=== PATIENT | female | born 1990 | race Caucasian/White ===

== ENCOUNTER 2024-07-22 19:48 | Emergency (ER) | payer OTHER, MEDICAID, SELFPAY ==
[2024-07-22 19:57] VITALS: BP 135/85; PULSE 85; RESP 18; TEMP 36.9; O2SAT 99; BMI 41.1
--- NOTE | 2024-07-22 22:09 | ED.GENADULT ---
HPI - General Adult General Date Seen: 07/22/24 Chief complaint: Extremity Pain/Injury, Lower Stated complaint: Left leg injury, little ability to move leg Time Seen by Provider: 07/22/24 21:44 History of Present Illness HPI narrative: 34-year-old female presenting to the ER today with right knee pain. She slipped and fell this morning on ice. She was seen in the ER in [place], [place] and had a knee x-ray that she reports was negative. She says she slipped and fell on the ice at about 4:00 a.m. this morning when she was at work. She describes an awkward fall where her left leg flu out sideways and she fell forward with all of her weight directly on to her right knee. She had knee pain after that. She was seen in a different ER (the ER in [place]) and reports that she had negative knee x-rays. She was told that she has a knee sprain and was discharged home. She has had ongoing pain in her legs since then and now has pain all the way from her femur, through the knee, into the back of her knee and all the way down to her ankle. She has is that hurts try to bear weight on her knee. She came here to the ER in [place], seeking a 2nd opinion. She has not re-injured her knee. She does not really recall a twisting mechanism. She does have a history of a previous injury to her left (contralateral) knee that apparently his lead to some chronic ?soft tissue? damage. Related Data Home Medications ?Medication ?Instructions ?Recorded ?Confirmed No Known Home Medications 07/22/24 07/22/24 Allergies Allergy/AdvReac Type Severity Reaction Status Date / Time aspirin Allergy Severe Anaphylaxis Verified 07/22/24 20:02 [facility] Medical History (Updated 07/22/24 @ 23:42 by Leonardo Villalobos MD) No significant past medical history Surgical History (Updated 07/22/24 @ 23:11 by Blayne Bardales RN) No significant past surgical history Social History Smoking Status: Never smoker Do you use any of these nicotine containing products: Vaping Products Second hand tobacco smoke exposure: No How often do you have a drink containing alcohol: never AUDIT-C Alcohol total score: 0 Non-prescribed substance use: denies use Exam Narrative: Exam Narrative: Constitutional: Appears well-developed and well-nourished. Active. Endorses pain in her right leg and says she cannot move it because of severe right knee and leg pain HENT: Head: Atraumatic. No signs of injury. Nose: No nasal discharge. Mouth/Throat: Mucous membranes are moist. Pharynx is normal. Tonsils symmetric. Uvula midline. Airway patent. Eyes: Conjunctivae normal and EOM are normal. Pupils are equal, round, and reactive to light. Right eye exhibits no discharge. Left eye exhibits no discharge. No icterus. Neck: Normal range of motion. Neck supple. No adenopathy. No stridor. Cardiovascular: Normal rate and regular rhythm. No murmur heard. No murmurs, rubs, or gallops. Brisk capillary refill Pulmonary/Chest: Effort normal. No stridor. No respiratory distress. No wheezes.No rhonchi. No rales. No retractions. Musculoskeletal: No injury except for her right leg. Inspection of the right leg is normal. There is no bruising. No abrasion. No no redness. Because of elevated BMI difficult to assess for swelling in the knee but there is no obvious knee joint effusion. She is holding her knee flexed about 10? and says it hurts to fully extend and hurts to flex it beyond 10?. I am not able to examine her knee for ligamentous injury due to pain and muscular guarding. She also endorses pain radiating up into her femur and thigh from the knee and down into her lower leg all the way to the ankle from her knee. She has no bony tenderness over the hip. No definite bony deformity of the femoral shaft. She does have tenderness over the distal thigh without any bruising or swelling. She also has tenderness over the tibial spine anteriorly and the medial and lateral malleoli of her ankle. No tenderness over the gastrocnemius or calf. She does have intact ankle plantar flexion and dorsiflexion. Intact toe wiggling. Normal sensory function on the sole of the foot, dorsal 1st web space, medial and lateral foot. Normal DP pulse. Normal brisk distal cap refill.. Neurological: Alert. Normal strength. No cranial nerve deficit or sensory deficit. Coordination normal. GCS eye subscore is 4. GCS verbal subscore is 5. GCS motor subscore is 6. Skin: Skin is warm. No rash noted. Const: Vital Signs, click to edit/add: Vital Signs - 24 hr 07/22/24 19:57 07/22/24 22:26 07/22/24 23:12 Temperature 98.5 F 98.5 F Pulse Rate [Right Pulse Oximeter] 85 Respiratory Rate 18 Blood Pressure [Ri ght Upper Arm] 135/85 Pulse Oximetry 99 99 Oxygen Delivery Me thod Room Air 07/22/24 23:41 Temperature 98.5 F Pulse Rate [Right Pulse Oximeter] Respiratory Rate Blood Pressure [Ri ght Upper Arm] Pulse Oximetry Oxygen Delivery Me thod Course Vital Signs Vital signs: Initial Vital Signs Temperature 98.5 F 07/22/24 19:57 Temperature Source Temporal Artery Scan 07/22/24 19:57 Pulse Rate 85 07/22/24 19:57 Respiratory Rate 18 07/22/24 19:57 Blood Pressure 135/85 07/22/24 19:57 Blood Pressure Mean 101 07/22/24 19:57 Blood Pressure Position Sitting 07/22/24 19:57 Pulse Oximetry 99 07/22/24 19:57 Oxygen Delivery Method Room Air 07/22/24 19:57 Vital Signs Temperature 98.5 F 07/22/24 19:57 Pulse Rate 85 07/22/24 19:57 Respiratory Rate 18 07/22/24 19:57 Blood Pressure 135/85 07/22/24 19:57 Pulse Oximetry 99 07/22/24 19:57 Oxygen Delivery Method Room Air 07/22/24 19:57 Temperature 98.5 F 07/22/24 23:41 Pulse Rate 85 07/22/24 19:57 Respiratory Rate 18 07/22/24 19:57 Blood Pressure 135/85 07/22/24 19:57 Pulse Oximetry 99 07/22/24 23:12 Oxygen Delivery Method Room Air 07/22/24 19:57 Medications Administered Medications: Discontinued Medications Generic Name Dose Route Start Last Admin Trade Name Freq PRN Reason Stop Dose Admin Hydrocodone Bitart/Acetaminophen 1 tab 07/22/24 22:21 07/22/24 22:26 Hydrocodone-Acetamin 5-325 Mg 1 Tab PO 07/22/24 22:22 1 tab ONCE ONE Administration Medical Decision Making MDM Narrative Medical decision making narrative: 34-year-old female presenting to the ER today for right lower extremity pain. She says she slipped and fell on the ice at about 4:00 a.m. this morning when she was at work. She describes an awkward fall where her left leg flu out sideways and she fell forward with all of her weight directly on to her right knee. She had knee pain after that. She was seen in a different ER (the ER in [place]) and reports that she had negative knee x-rays. She was told that she has a knee sprain and was discharged home. She has had ongoing pain in her legs since then and now has pain all the way from her femur, through the knee, into the back of her knee and all the way down to her ankle. She has is that hurts try to bear weight on her knee. She came here to the ER in [place], seeking a 2nd opinion. She has not re-injured her knee. She does not really recall a twisting mechanism. She does have a history of a previous injury to her left knee that apparently his lead to some chronic ?soft tissue? damage. She had already have x-rays in her right knee done at [facility] today that are normal. X-rays of her femur and tibia/fibula were obtained because of pain radiating upward and downward from her knee and they are fortunately negative. She does not have any redness or warmth to the knee to suggest a septic arthritis or a nontraumatic calls for this knee pain. She does not have any back pain, numbness or paralysis in her leg to suggest lumbar radiculopathy. No signs of acute limb ischemia. Nothing by history or physical to suggest that she had a complete knee does location requiring transfer to a trauma center for angiogram. Discussed with the patient and her family that concern here is for possible internal derangement of the knee such as ligamentous or meniscus injury. This cannot be properly assessed at this point because were not able to get a reliable knee exam. I recommended that we place the patient into a knee immobilizer to protect her knee and have her have close outpatient follow-up with ortho for repeat knee exam, and if necessary and knee MRI. Patient is agreeable to this plan of care. Instymeds prescription for Ryegate provided. Opiate precautions reviewed. Questions answered. Imaging Data XR femur: Attestation: I have reviewed the pertinent imaging results. Radiologist's impression: IMPRESSION: No acute findings. Dictated by Maria Teresa Mena MD @ 07/22/2024 11:20:10 PM XR tib fib: Attestation: I have reviewed the pertinent imaging results. Radiologist's impression: IMPRESSION: No acute findings. Discharge Plan Discharge Clinical Impression: Acute pain of right knee Patient Disposition: Home, Self-Care Condition: Stable Instructions: Knee Pain (ED) Additional Instructions: As we discussed, the x-rays of your femur and tibia look good tonight. No signs of any broken bones. We did not repeat the x-rays of the knee, because he reportedly had normal x-rays earlier today. At this point I suspect that your knee pain is probably due to a bruise, or sprain, but could be due to a more significant injury such as a tear of 1 of the ligaments in your knee. Please wear the knee brace whenever you are up and around for the next few days. It is very important to follow-up with orthopedics for repeat evaluation in the next 3-5 days. You can call 507 schedule an ER follow-up visit with the [facility]. Use fgms-cir-gomvyte medications such as Tylenol 1000 mg every 6 hours as needed. You can use the prescription pain medication if needed but be careful because prescription pain killers are addictive, cause dizziness and drowsiness, and canned cause constipation. Prescriptions: No Action No Known Home Medications Follow Up/Referrals: Provider,Not a Local [Primary Care Provider] - Stand Alone Forms: ASOC[facility] Info Instructions
[2024-07-22 22:26] VITALS: TEMP 36.9
[2024-07-22] MEDS: HYDROCODONE-ACETAMIN 5-325 MG 1 TAB PO (22:26)
[2024-07-22 23:12] VITALS: O2SAT 99
[2024-07-22 23:41] VITALS: TEMP 36.9
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
--- OUTSIDE RECORDS SUMMARY | 2024-07-22 23:42 | XMS_ITS | Clinical Summary ---
Author Organization [facility] Address [address] [place] [address] Care Team Providers Care Salvage Laborer Name Role Phone None Reported, Pcp Primary Care Provider Unavail able Source Comments Patient records contain information from all sites at [facility]. For routine questions regarding patient records, call [phone] during business hours, M-F 8:00 AM - 5:00 PM Central Time. Record requests for emergency care only can be directed to [phone] at any time.[facility] Allergies Active Allergy Reactions Criticality Noted Date Comments Aspirin Anaphylaxis High 07/12/2020 aspirin Medications phentermine (Adipex-P) 37.5 mg tablet Take 1 tablet by mouth daily. Active UNABLE TO FIND Take 1 each by mouth daily. Med Name: beef vitamin Active Active Problems No known active problems Encounters Date Type Department Care Team Description 07/22/2024 8:21 AM LIEN SEARCHER - 07/22/2024 9:24 AM [facility] [address] [place] [id number] Sandra Arredondo D.O. Contusion Knee Initial Right (Primary Dx) Discharge Disposition: Home or Self Care from Last 3 Months Social History Tobacco Use Types Packs/Day Years Used Date Smoking Tobacco: Never Passive Smoke Exposure: Current Smokeless Tobacco: Never Tobacco Cessation:Counseling Given: Not Answered Dental Answer Date Recorded Dental: Regular Dentist Unknown 07/21/19 24 Comments No Sex and Gender Information Value Date Recorded Sex Assigned at Not on file Legal Sex Female 6:46 PM LIEN SEARCHER Gender Identity Not on file Sexual Orientation Not on file Last Filed Vital Signs Vital Sign Reading Time Taken Comments Blood Pressure 121/79 07/22/2024 9:15 AM LIEN SEARCHER Pulse 76 07/22/2024 9:15 AM LIEN SEARCHER Temperature 37 C (98.6 F) 07/22/2024 8:23 AM LIEN SEARCHER Respiratory Rate 16 07/22/2024 8:23 AM LIEN SEARCHER Oxygen Saturation 98% 07/22/2024 9:15 AM LIEN SEARCHER Inhaled Oxygen Concentration - - Weight 115 kg (254 lb) 07/22/2024 8:23 AM LIEN SEARCHER Height 165.1 cm (5' 5) 07/22/2024 8:25 AM LIEN SEARCHER Body Mass Index 42.27 07/22/2024 8:23 AM LIEN SEARCHER Plan of Treatment Health Maintenance Due Date Last Done Comments Cervical/Vaginal Cancer Screening 1990 HIV Screening 1990 Hepatitis C Screening 1990 Tobacco Cessation counseling 1990 DTaP,Tdap,and Td Vaccines (1 - Tdap) 2009 Hepatitis B Vaccines (1 of 3 - 19+ 3-dose series) 2009 COVID-19 Vaccine (3 - 2023-2 5 season) 2024 06/29/2020, 05/29/2020 Influenza Vaccine (#1) 2024 Depression Screening (Annual PHQ-2) 05/18/2024 HPV Vaccines Aged Out No longer eligi ble based on patient's age to complete this topic IPV Vaccines Aged Out No longer eligi ble based on patient's age to complete this topic Pneumococcal vaccine (0-49 years) Aged Out No longer eligible b ased on patient's age to complete this topic Procedures Procedure Name Priority Date/Time Associated Diagnosis Comments DX KNEE RIGHT 4+ VIEWS RAD - Semiurgent (Fast; most ED patients; some inpatients) 07/22/2024 8:58 AM LIEN SEARCHER from Last 3 Months Results * DX Knee Right 4+ Views (07/22/2024 8:58 AM LIEN SEARCHER) Anatomical Region Laterality Modality Lower Extremity, Knee, Muscu loskeletal RST LOS, Musculoskeletal ARZ LOS, Muskuloskeletal FLA LOS Right Digit al Radiography Impressions 07/22/2024 9:00 AM LIEN SEARCHER No prior imaging available for comparison. No acute fractures. Normal alignment. No substantial joint effusion. Narrative 07/22/2024 9:00 AM LIEN SEARCHER EXAM: DX KNEE RIGHT 4+ VIEWS Procedure Note Jeremy Grant M.D. - 07/22/2024 EXAM: DX KNEE RIGHT 4+ VIEWS IMPRESSION: No prior imaging available for comparison. No acute fractures. Normalalignment. No substantial joint effusion. Sandra [facility] PROCEDURE S Final Result from Last 3 Months Insurance [place] Care Teams Salvage Laborer Relationship Specialty Start Date End Date None Reported, Pcp PCP - General Family Medicine 03/19/24
--- OUTSIDE RECORDS SUMMARY | 2024-07-22 23:42 | XMS_ITS | Clinical Summary ---
Author Organization [facility] Address [address] [place] [address] Care Team Providers Care Edge Molder Name Role Phone Clinic, No Pcp Or Primary Care Provider Unavaila ble Allergies Active Allergy Reactions Criticality Noted Date Comments Aspirin Anaphylaxis High 07/21/2023 Medications No known medications Social History Tobacco Use Types Packs/Day Years Used Date Smoking Tobacco: Never Assessed Interpersonal Safety Answer Date Record ed Are you being hit, kicked, p ushed or yelled at (see row info)? No 07/21/2023 Interpersonal Safety Abuse 12 - 18 Not on file 07/21/2023 Interpersonal Safety Ambulatory Vulnerability No t on file 07/21/2023 Comments No Sex and Gender Information Value Date Recorded Sex Assigned at Not on file Legal Sex Female 6:14 PM TNT POWDER WORKER Gender Identity Not on file Sexual Orientation Not on file Last Filed Vital Signs Vital Sign Reading Time Taken Comments Blood Pressure 128/74 07/21/2023 7:40 PM TNT POWDER WORKER Pulse 73 07/21/2023 7:40 PM TNT POWDER WORKER Temperature 36.6 C (97.9 F) 07/21/2023 7:40 PM TNT POWDER WORKER Respiratory Rate 14 07/21/2023 7:40 PM TNT POWDER WORKER Oxygen Saturation 99% 07/21/2023 7:40 PM TNT POWDER WORKER Inhaled Oxygen Concentration - - Weight 112.9 kg (249 lb) 07/21/2023 7:46 PM TNT POWDER WORKER Height 165.1 cm (5' 5) 07/21/2023 7:46 PM TNT POWDER WORKER Body Mass Index 41.44 07/21/2023 7:46 PM TNT POWDER WORKER Plan of Treatment Not on file Insurance MEDICAID Care Teams Edge Molder Relationship Specialty Start Date End Date Clinic, No Pcp Or . PCP - General 07/21/23
[2024-07-22 23:55] VITALS: BP 128/74; PULSE 82; RESP 18; TEMP 36.9; O2SAT 99
[2024-07-22 23:59] VITALS: BP 128/74; PULSE 82; RESP 18; TEMP 36.9
[2024-07-23] MEDS: HYDROCODONE-ACETAMIN 5-325 MG 1 TAB 2 TAB PO (00:16)
== END 2024-07-22 23:58 | disposition home or self-care (01) ==
PROVIDERS: Emergency Provider Emergency Medicine
DX: M25.561 Pain in right knee (principal); W00.9XXA Unspecified fall due to ice and snow, initial encounter
CPT/HCPCS: 73552; 73590; 94761; 99282; 99283; A9270

== ENCOUNTER 2024-08-15 08:54 | Outpatient (CLI) | payer OTHER, MEDICAID, SELFPAY ==
--- NOTE | 2024-08-15 09:15 | MR_ITS ---
[address] [address] Phone:?[phone] Fax:?[phone] Referring Physician Information: Saji Fenton [address] [facility] [address] Phone:?[phone] Fax:?[phone] Patient:Esther Najera D.O.B:?1990 Sex:?Female Phone:?[phone] [facility] MRN:?[id number] Exam Date:?08/15/2024 EXAM: MRI of the RIGHT HIP, without contrast CLINICAL HISTORY: Ongoing right hip pain. Evaluate for fracture. COMPARISONS: Plain radiographs 07/22/2024. TECHNICAL: MR sequences of the right hip: Axials: PD FS Axial oblique: PD Coronals: PD, T2 Coronal pelvis: T1 and STIR Sagittals: PD and T2 CONTRAST: None SEDATION: None FINDINGS: Pelvis osseous structures: Sacrum: No fracture or destructive osseous lesion is seen of the imaged portions of the sacrum. Sacroiliac joints: No convincing evidence of sacroiliitis of the imaged portions of the sacroiliac joints. Pubic rami: Unremarkable. Symphysis pubis: There is no evidence of acute osteitis pubis. Labrum: Anterosuperior labral fraying is suspected although it must be noted that the labrum is not well evaluated because of nonarthrogram technique and poor gztern-rv-awplj. Hip joint: Physiologic amount of joint fluid. No discrete chondral defect is seen although it must be noted that smooth chondral thinning is not well evaluated for by MRI and cannot be excluded by this MRI. Evaluation of the cartilage is suboptimal because of nonarthrogram technique and poor ukvevg-sa-glzrs. No subchondral cystic change/subchondral edema-like signal. Proximal femur: No fracture, osseous stress injury, avascular necrosis, or suspicious bone marrow signal abnormality is seen. Acetabulum: No subchondral cysts, periacetabular ossicles or marrow edema. Coverage: Right lateral center edge (CE) angle measures approximately 34? correcting for coronal pelvic tilt, midline coronal series 5 image 14. Ligamentum teres: Unremarkable. Myotendinous structures: Gluteus abductors: The gluteus minimus and medius tendons are unremarkable. Rectus abdominis-adductor longus aponeurosis, adductors, and rectus abdominis: Unremarkable. Hamstrings: Unremarkable. Flexors: The iliopsoas and rectus femoris tendons are intact. Quadratus femoris muscle: Unremarkable. Piriformis muscle: Unremarkable. Gluteal aponeurotic fascia and IT band: Unremarkable. Pelvic soft tissues: Intrauterine device is in place. IMPRESSION: Right hip: 1. Anterosuperior labral fraying is suspected although it must be noted that the labrum is not well evaluated because of nonarthrogram technique and poor hzyryd-tc-rcdkm. No discrete chondral defect is seen although it must be noted that smooth chondral thinning is not well evaluated for by MRI and cannot be excluded by this MRI. Evaluation of the cartilage is suboptimal because of nonarthrogram technique and poor vbtoet-jp-kvpah. No subchondral cystic change/subchondral edema-like signal. 2. No fracture, osseous stress injury, or tendinous pathology of the right hip. RCB Electronically signed on 08/15/2024 3:10:00 PM by Andriy Wilson M.D.
--- NOTE | 2024-08-15 10:15 | MR_ITS ---
[address] [address] Phone:?[phone] Fax:?[phone] Referring Physician Information: Saji Fenton [address] [facility] [address] Phone:?[phone] Fax:?[phone] Patient:Esther Najera D.O.B:?1990 Sex:?Female Phone:?[phone] [facility] MRN:?[id number] Exam Date:?08/15/2024 EXAM: MRI of the RIGHT KNEE, without contrast CLINICAL HISTORY: Ongoing right knee pain. Evaluate for ligamentous and meniscal pathology. COMPARISONS: Plain radiographs 07/22/2024. TECHNICAL: MR sequences of the right knee: sagittals: PD, PDFS coronals: PD, STIR axials: PD, T2 FS CONTRAST: None SEDATION: None FINDINGS: Bones: No fracture, bone marrow contusion, or other suspicious bone marrow signal abnormality. Patellofemoral joint: Cartilage: Intact. Retinacula: The medial and lateral retinacula are intact. Fat pads: The infrapatellar, quadriceps, and prefemoral fat pads are unremarkable. Knee joint: Effusion: Small right knee joint effusion. Popliteal cyst: None. Intra-articular bodies: None. Posteromedial corner: The semimembranosus and pes anserine tendons are intact. Medial compartment: Medial meniscus: Intact. Cartilage: Intact. Lateral compartment: Lateral meniscus: Intact. Cartilage: Intact. Ligaments: Anterior cruciate ligament: Intact. Posterior cruciate ligament: High-grade likely complete tear of the posterior cruciate ligament although it must be noted that evaluation is compromised by poor drczpj-qq-avxxa. Medial collateral ligament: Intact. Posterior oblique ligament: Intact. Fibular collateral ligament: Intact. Posterolateral corner: The distal biceps femoris tendon, iliotibial band, popliteus tendon, popliteus muscle, popliteofibular ligament, and arcuate ligament are intact. Extensor mechanism: Patellar tendon: Intact. Quadriceps tendon: Intact. IMPRESSION: 1. High-grade likely complete tear of the posterior cruciate ligament although it must be noted that evaluation is, minus by poor ncaxug-ie-kegpn. 2. Small right knee joint effusion. 3. No osseous, tendinous, anterior cruciate, meniscal, or chondral pathology of the right knee. RCB Electronically signed on 08/15/2024 1:26:00 PM by Andriy Wilson M.D.
== END 2024-08-15 08:55 | disposition home or self-care (01) ==
PROVIDERS: Visit Provider Physician Assistant
DX: M25.561 Pain in right knee (principal); S83.521A Sprain of posterior cruciate ligament of right knee, initial encounter; M25.461 Effusion, right knee; M25.551 Pain in right hip; M79.651 Pain in right thigh; S89.91XA Unspecified injury of right lower leg, initial encounter
CPT/HCPCS: 73721